=== PATIENT | male | born 1985 | race Caucasian/White ===

== ENCOUNTER 2016-12-17 20:56 | Emergency (ER) | payer OTHER ==
[2016-12-17 21:14] VITALS: BP 161/91
[2016-12-17] MEDS ORDERED: Acetaminophen/HYDROcodone 325-5 MG Tab PO ONE (23:08)
[2016-12-17] MEDS ORDERED: Penicillin G Benzathine 1,200,000 Units/2 ML Syringe IM ONE (23:08)
--- NOTE | 2016-12-17 23:12 | EDM.PDOC ---
ED HPI GENERAL MEDICAL PROBLEM - General Chief Complaint: ENT Problem Stated Complaint: STREP Time Seen by Provider: 12/17/16 21:48 Source of Information: Reports: Patient History Limitations: Reports: No Limitations - History of Present Illness INITIAL COMMENTS - FREE TEXT/NARRATIVE: Patient is a 31-year-old male presents ED complaining of sore throat that started this past Thursday and has progressively worsened. Has felt feverish with no documented fever present. States the right side of his neck is tender to touch. Mildly nauseated with intermittent headaches. He does have sinus congestion and postnasal drip. No cough present. Denies recent sick exposures. Denies any abdominal pain. He does have intermittent seasonal allergies but takes no medications. Throat Pain Score (Numeric/FACES): 9 - Related Data Allergies Allergy/AdvReac Type Severity Reaction Status Date / Time codeine Allergy Itching Verified 12/17/16 21:08 Home Meds: Home Meds traMADol [Ultram] 50 mg PO BID 09/22/14 [History] Past Medical History Musculoskeletal History: Reports: Back Pain, Chronic Neurological History: Reports: Concussion Other Dermatologic History: cellulitis - Past Surgical History Musculoskeletal Surgical History: Reports: Arthroscopic Knee, Other (See Below) Social & Family History - Tobacco Use Smoking Status *Q: Never Smoker Second Hand Smoke Exposure: No - Caffeine Use Caffeine Use: Reports: None - Alcohol Use Days Per Week of Alcohol Use: 0 - Recreational Drug Use Recreational Drug Use: No ED ROS ENT - Review of Systems Review Of Systems: ROS reveals no pertinent complaints other than HPI. ED EXAM, ENT - Physical Exam Exam: See Below Exam Limited By: No Limitations General Appearance: Alert, WD/WN, No Apparent Distress Eye Exam: Bilateral Eye: PERRL Ears: Normal External Exam, Normal Canal, Hearing Grossly Normal, Normal TMs Nose: Normal Inspection, Normal Mucousa, No Blood Mouth/Throat: Normal Inspection, Tonsillar Erythema, Tonsillar Swelling. No: Tongue Swelling, Tonsillar Exudates, Trismus, Uvular Deviation Head: Atraumatic, Normocephalic Neck: Normal Inspection, Supple, Non-Tender, Full Range of Motion. No: Lymphadenopathy (L), Lymphadenopathy (R) Respiratory/Chest: No Respiratory Distress, Lungs Clear, Normal Breath Sounds, No Accessory Muscle Use, Chest Non-Tender Cardiovascular: Normal Peripheral Pulses, Regular Rate, Rhythm GI/Abdominal: Normal Bowel Sounds, Soft, Non-Tender, No Organomegaly, No Distention Back: Normal Inspection Neurological: Alert, Oriented, CN II-XII Intact, Normal Cognition, No Motor/ Sensory Deficits Psychiatric: Normal Affect, Normal Mood Skin: Warm, Dry, Intact, Normal Color Course - Vital Signs Last Recorded V/S: Last Vital Signs Temp 98.2 F 12/17/16 21:09 Pulse 82 12/17/16 21:09 Resp 17 12/17/16 21:09 BP 161/91 H 12/17/16 21:09 Pulse Ox 98 12/17/16 21:09 - Orders/Labs/Meds Meds: Medications Discontinued Medications Generic Name Dose Route Start Last Admin Trade Name Yisel PRN Reason Stop Dose Admin Hydrocodone Bitart/Acetaminophen 1 tab 12/17/16 23:08 12/17/16 23:18 [place] 325-5 Mg PO 12/17/16 23:09 1 tab ONETIME ONE Administration Penicillin G Benzathine 1.2 millunits 12/17/16 23:08 12/17/16 23:18 Bicillin L-A IM 12/17/16 23:09 1.2 millunits ONETIME ONE Administration - Re-Assessments/Exams Free Text/Narrative Re-Assessment/Exam: Strep screen was ordered and came back positive. Patient has elected to receive an IM injection of Bicillin. For the pain also ordered [place] one tab by mouth. We'll discharge patient home with instructions as documented. Departure - Departure Time of Disposition: 23:11 Disposition: Home, Self-Care 01 Condition: Good Clinical Impression: Strep throat - Discharge Information Instructions: Strep Throat Referrals: PCP,None [Primary Care Provider] - Forms: ED Department Discharge, Return to Work/School Form Additional Instructions: No driving this evening since receiving a sedative to medication. Antibiotic was administered IM thus no oral therapies are required. Take Tylenol and ibuprofen in alternating fashion for pain and fever. Push the fluids. Ensure adequate rest. Follow-up with your primary care provider symptoms are not improved in the next 3 days. Return to ED for any new or worsening symptoms.
== END 2016-12-17 23:55 | disposition home or self-care (01) ==
LOC: JD.ED 20:56
DX: J02.0 Streptococcal pharyngitis (principal); Z98.890 Other specified postprocedural states
CPT/HCPCS: 87430; 96372; 99283; A9270; J0561

== ENCOUNTER 2019-06-23 19:21 | Emergency (ER) | payer OTHER ==
[2019-06-23 19:37] VITALS: BP 151/86; PULSE 85
[2019-06-23] MEDS ORDERED: Albuterol/Ipratropium 3.0-0.5 MG/3 ML Neb Soln NEB ONE (20:45)
--- NOTE | 2019-06-23 20:51 | EDM.PDOC ---
ED HPI GENERAL MEDICAL PROBLEM - General Chief Complaint: Respiratory Problem Stated Complaint: COUGH AND VOMITING FROM COUGH Time Seen by Provider: 06/23/19 20:17 Source of Information: Reports: Patient, RN Notes Reviewed History Limitations: Reports: No Limitations - History of Present Illness INITIAL COMMENTS - FREE TEXT/NARRATIVE: Patient is a 34-year-old male who presents to the ED for evaluation of a cough has been present for around 2 weeks. He further complains of some mild chest congestion as well. Patient notes he tried multiple [id number] remedies such as neck, DayQuil, NyQuil, and other cough medications but does not seem to help much at all. He notes that he has been waking up in the middle of night with mild shortness of breath, and feels like his throat is raw due to the coughing. He notes he gets a little bit of thick mucus up, but not a lot at a time. He notes that he has been coughing so much, that he has been vomiting, but does not notice any blood in the vomit. He is not having any chest pain, more of a mild chest discomfort due to the coughing. He has not had any fevers at home, however he states that symptoms awake up with the night sweats. He did not get a flu shot this year. He denies any other health issues, but notes he has chronic back pain that he is being treated for at the [facility]. - Related Data Allergies Allergy/AdvReac Type Severity Reaction Status Date / Time codeine Allergy Itching Verified 06/23/19 19:37 Home Meds: Home Meds traMADol [Ultram] 50 mg PO Q6H PRN #28 tab 01/13/19 [Rx] Sildenafil [Viagra] 50 mg PO BEDTIME PRN 06/23/19 [History] Past Medical History Musculoskeletal History: Reports: Back Pain, Chronic Neurological History: Reports: Concussion Endocrine/Metabolic History: Reports: Obesity/BMI 30+ Dermatologic History: Reports: Cellulitis - Past Surgical History Musculoskeletal Surgical History: Reports: Arthroscopic Knee Social & Family History - Tobacco Use Smoking Status *Q: Never Smoker - Caffeine Use Caffeine Use: Reports: None - Recreational Drug Use Recreational Drug Use: No ED ROS GENERAL - Review of Systems Review Of Systems: See Below Constitutional: Reports: Chills, Malaise (generalized), Night Sweats. Denies: Fever HEENT: Reports: Throat Pain. Denies: Throat Swelling Respiratory: Reports: Shortness of Breath (mild with coughing, and with exertion ), Cough. Denies: Wheezing Cardiovascular: Reports: Chest Pain (mild chest discomfort) GI/Abdominal: Reports: Vomiting (sometimes after coughing fits). Denies: Abdominal Pain, Nausea Neurological: Denies: Headache ED EXAM, GENERAL - Physical Exam Exam: See Below Exam Limited By: No Limitations General Appearance: Alert, WD/WN, No Apparent Distress Eye Exam: Bilateral Eye: EOMI, Normal Inspection, PERRL Ears: Normal External Exam Nose: Normal Inspection, Normal Mucosa, No Blood Throat/Mouth: Normal Inspection, Normal Lips, Normal Teeth, Normal Gums, Normal Oropharynx, Normal Voice, No Airway Compromise Head: Atraumatic, Normocephalic Neck: Normal Inspection Respiratory/Chest: No Respiratory Distress, Lungs Clear, No Accessory Muscle Use , Chest Non-Tender, Decreased Breath Sounds (diffuse bilaterally) Cardiovascular: Normal Peripheral Pulses, Regular Rate, Rhythm, No Murmur GI/Abdominal: Normal Bowel Sounds, Soft, Non-Tender, No Distention, No Mass Extremities: Normal Inspection, Normal Capillary Refill Neurological: Alert, Oriented, Normal Cognition, No Motor/Sensory Deficits Psychiatric: Normal Affect, Normal Mood Skin Exam: Warm, Dry, Intact, Normal Color, No Rash Course - Vital Signs Last Recorded V/S: Last Vital Signs Temp 98.3 F 06/23/19 19:34 Pulse 85 06/23/19 19:34 Resp 16 06/23/19 19:34 BP 151/86 H 06/23/19 19:34 Pulse Ox 94 L 06/23/19 20:45 - Orders/Labs/Meds Orders: Active Orders 24 hr Category Date Time Status RT Aerosol Therapy [RC] ASDIRECTED Care 06/23/19 20:45 Ordered Chest 2V [CR] Stat Exams 06/23/19 20:45 Ordered Codeine/Promethazine [Phenergan with Codeine] Med 06/24/19 22:03 Once 5 ml PO ONETIME ONE diphenhydrAMINE [Benadryl] Med 06/23/19 22:04 Ordered 25 mg IM ONETIME PRN Medication Orders Diphenhydramine HCl (Benadryl) 25 mg IM ONETIME PRN PRN Reason: Itching Promethazine HCl/Codeine (Phenergan With Codeine) 5 ml PO ONETIME ONE Stop: 06/24/19 22:04 Last Admin: 06/23/19 22:13 Dose: 5 ml Labs: Laboratory Tests 06/23/19 06/23/19 Range/Units 21:00 21:00 WBC 7.45 (4.23-9.07) K/mm3 RBC 5.38 (4.63-6.08) M/mm3 Hgb 16.2 (13.7-17.5) gm/dl Hct 43.5 (40.1-51.0) % MCV 80.9 (79.0-92.2) fl MCH 30.1 (25.7-32.2) pg MCHC 37.2 H (32.2-35.5) g/dl RDW Std Deviation 37.2 (35.1-43.9) fL Plt Count 233 (163-337) K/mm3 MPV 9.3 L (9.4-12.3) fl Neut % (Auto) 70.3 H (34.0-67.9) % Lymph % (Auto) 20.0 L (21.8-53.1) % [place] % (Auto) 7.9 (5.3-12.2) % Eos % (Auto) 1.6 (0.8-7.0) Baso % (Auto) 0.1 (0.1-1.2) % Neut # (Auto) 5.23 (1.78-5.38) K/mm3 Lymph # (Auto) 1.49 (1.32-3.57) K/mm3 [place] # (Auto) 0.59 (0.30-0.82) K/mm3 Eos # (Auto) 0.12 (0.04-0.54) K/mm3 Baso # (Auto) 0.01 (0.01-0.08) K/mm3 Manual Slide Review Normal smear Sodium 141 (136-145) mEq/L Potassium 3.9 (3.5-5.1) mEq/L Chloride 106 (98-107) mEq/L Carbon Dioxide 24 (21-32) mEq/L Anion Gap 14.9 (5-15) BUN 16 (7-18) mg/dL Creatinine 1.0 (0.7-1.3) mg/dL Est Cr Clr Drug Dosing 119.88 mL/min Estimated GFR (MDRD) > 60 (>60) mL/min BUN/Creatinine Ratio 16.0 (14-18) Glucose 94 (74-106) mg/dL Calcium 8.9 (8.5-10.1) mg/dL Total Bilirubin 0.6 (0.2-1.0) mg/dL AST 21 (15-37) U/L ALT 45 (16-63) U/L Alkaline Phosphatase 45 L (46-116) U/L Total Protein 6.8 (6.4-8.2) g/dl Albumin 4.3 (3.4-5.0) g/dl Globulin 2.5 gm/dL Albumin/Globulin Ratio 1.7 (1-2) Meds: Medications Generic Name Dose Route Start Last Admin Trade Name Freq PRN Reason Stop Dose Admin Diphenhydramine HCl 25 mg 06/23/19 22:04 Benadryl IM ONETIME PRN Itching Promethazine HCl/Codeine 5 ml 06/24/19 22:03 06/23/19 22:13 Phenergan With Codeine PO 06/24/19 22:04 5 ml ONETIME ONE Administration Discontinued Medications Generic Name Dose Route Start Last Admin Trade Name Freq PRN Reason Stop Dose Admin Albuterol/Ipratropium 3 ml 06/23/19 20:45 06/23/19 21:02 Duoneb 3.0-0.5 Mg/3 Ml NEB 06/23/19 20:46 3 ml ONETIME ONE Administration Promethazine HCl/Codeine Confirm 06/23/19 22:12 06/23/19 22:15 Phenergan With Codeine Administered 06/23/19 22:13 Not Given Dose 5 ml .ROUTE .STK-MED ONE - Re-Assessments/Exams Free Text/Narrative Re-Assessment/Exam: 06/23/19 20:51 Patient presents to the ED for evaluation of a cough and chest congestion been present for around 2 weeks now. I will order influenza swab, chest x-ray, CBC, CMP and a DuoNeb for initial management. Suspect patient has more of a bronchitis type illness in nature. 06/23/19 21:51 Influenza negative, chest x-ray shows no sign of pneumonia, suspect the patient has bronchitis. We'll treat as such. Departure - Departure Time of Disposition: 21:51 Disposition: Home, Self-Care 01 Condition: Fair Clinical Impression: Bronchitis - Discharge Information *PRESCRIPTION DRUG MONITORING PROGRAM REVIEWED*: No *COPY OF PRESCRIPTION DRUG MONITORING REPORT IN PATIENT ERROL: No Instructions: Acute Bronchitis, Adult, [id number] Referrals: Alexandria Fischer MD [Primary Care Provider] - Forms: ED Department Discharge Additional Instructions: You have been evaluated in the ED today for your cold like symptoms, cough, sore throat. This is likely a viral illness in etiology. Your chest x-ray did not show any sign of a pneumonia. It appears you may be suffering from bronchitis. Please increase your fluid intake. Get plenty of rest as well. You should feel better in a few days. You were given a prescription for a cough medicine that contains codeine, if you should develop itching, or hive-like lesions, please take Benadryl, 25-50 mg right away. You may also want to consider seeking care for further evaluation of possible allergic reaction. As you stated you had a possible allergic reaction to the codeine when you are around 14 years old the last time you took the sort of medication. You were successfully given one dose in the ER , without any such reaction.. If your symptoms are not better in one week's time recommend that you follow up in a clinic or your primary care provider. Our [facility] clinic number is , the [place] clinic is [phone]. Any family practice provider would be able to provide you with the services. Please return to the ED if your symptoms change or worsen. Sepsis Event Note - Evaluation Sepsis Screening Result: No Definite Risk - Focused Exam Vital Signs: Vital Signs Temp Pulse Resp BP Pulse Ox Pulse Ox 06/23/19 20:45 94 L 06/23/19 19:34 98.3 F 85 16 151/86 H 92 L Date Exam was Performed: 06/23/19 Time Exam was Performed: 22:55 - My Orders Last 24 Hours: My Active Orders 06/23/19 20:45 RT Aerosol Therapy [RC] ASDIRECTED Chest 2V [CR] Stat 06/23/19 22:04 diphenhydrAMINE [Benadryl] 25 mg IM ONETIME PRN 06/24/19 22:03 Codeine/Promethazine [Phenergan with Codeine] 5 ml PO ONETIME ONE - Assessment/Plan Last 24 Hours: My Active Orders 06/23/19 20:45 RT Aerosol Therapy [RC] ASDIRECTED Chest 2V [CR] Stat 06/23/19 22:04 diphenhydrAMINE [Benadryl] 25 mg IM ONETIME PRN 06/24/19 22:03 Codeine/Promethazine [Phenergan with Codeine] 5 ml PO ONETIME ONE
[2019-06-23] MEDS ORDERED: diphenhydrAMINE 50 MG/ML SDV IM PRN (22:04)
[2019-06-23] MEDS ORDERED: Codeine/Promethazine 10-6.25 MG/5 ML Syrup 5 ML UD Cup ONE (22:12)
--- NOTE | 2019-06-24 14:01 | CR ---
Chest: Two views of the chest were obtained. Comparison: Prior chest x-ray of 06/22/15. Heart size and mediastinum are normal. Distal right clavicle is sclerotic which appears as an interval change from previous exam. Bony structures otherwise are unremarkable. Lungs are clear. No acute parenchymal change. Impression: 1. Sclerotic distal right clavicle. This is an interval change from previous exam and uncertain as to etiology. Osteoblastic metastasis is possible but seems unlikely given that no other bone findings are seen as well as given the patient's age. Interval fracture with callus is possible. Please correlate if patient's clinical history can differentiate. 2. Nothing acute is otherwise seen on two-view chest x-ray. Diagnostic code #3 This report was dictated in [place] Standard Time
[2019-06-24] MEDS ORDERED: Codeine/Promethazine 10-6.25 MG/5 ML Syrup 5 ML UD Cup PO ONE (22:03)
== END 2019-06-23 23:01 | disposition home or self-care (01) ==
LOC: JD.ED 19:21
DX: J40 Bronchitis, not specified as acute or chronic (principal); E66.9 Obesity, unspecified; Z68.32 Body mass index [BMI] 32.0-32.9, adult; Z88.5 Allergy status to narcotic agent
CPT/HCPCS: 36415; 71046; 80053; 85025; 87804; 94640; 99285; A9270; J7620-GY

== ENCOUNTER 2020-02-26 20:23 | Emergency (ER) | payer OTHER ==
[2020-02-26 20:31] VITALS: BP 164/101; PULSE 97
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
== END 2020-02-26 20:49 | disposition home or self-care (01) ==
LOC: JD.ED 20:23
DX: S01.511A Laceration without foreign body of lip, initial encounter (principal); E66.9 Obesity, unspecified; Z68.30 Body mass index [BMI] 30.0-30.9, adult; Z88.5 Allergy status to narcotic agent; W50.0XXA Accidental hit or strike by another person, initial encounter
CPT/HCPCS: 99282

== ENCOUNTER 2021-11-03 11:46 | Emergency (ER) | payer OTHER ==
[2021-11-03 12:23] VITALS: BP 156/109; PULSE 78
[2021-11-03] MEDS ORDERED: Lidocaine 1% 10 ML MDV INJECT ONE (12:40)
[2021-11-03] MEDS ORDERED: Bupivacaine 0.5% 10 ML SDV INJECT ONE (12:40)
[2021-11-03] MEDS ORDERED: cefTRIAXone 1 GM, Lidocaine 1% 2.1 ML IM ONE ×2 (14:10)
== END 2021-11-03 14:52 | disposition home or self-care (01) ==
LOC: JD.ED 11:46
DX: S62.656B Nondisplaced fracture of middle phalanx of right little finger, initial encounter for open fracture (principal); E66.9 Obesity, unspecified; Z68.33 Body mass index [BMI] 33.0-33.9, adult; Z88.5 Allergy status to narcotic agent; W23.1XXA Caught, crushed, jammed, or pinched between stationary objects, initial encounter
CPT/HCPCS: 12002; 73140; 96372; 99283; J0696; J3490

== ENCOUNTER 2023-08-20 09:48 | Emergency (ER) | payer OTHER ==
[2023-08-20] MEDS: Sodium Chloride 0.9% 10 ML Syringe FLUSH PRN (10:45)
[2023-08-20] MEDS: Aspirin 81 MG Tab.Chew PO ONE (10:45)
[2023-08-20 10:55] LABS: BASOPHILS PERCENT AUTO 0.6 % (0.0-1.0); EOSINOPHILS ABSOLUTE AUTO 0.1 K/mm3 (0.0-0.4); EOSINOPHILS PERCENT AUTO 2.4 % (0.0-6.0); HEMATOCRIT 46.4 % (42.0-52.0); HEMOGLOBIN 16.8 gm/dl (14.0-18.0); IMMATURE GRAN ABSOLUTE AUTO 0.01 K/mm3 (0.00-0.05); IMMATURE GRAN PERCENT AUTO 0.2 % (0.0-0.4); LYMPHOCYTES ABSOLUTE AUTO 0.9 K/mm3 (1.0-4.8); LYMPHOCYTES PERCENT AUTO 16.7 % (24.0-44.0); MEAN CORPUSCULAR HEMOGLOBIN 29.9 pg (28.0-32.0); MEAN CORPUSCULAR HGB CONC 36.2 g/dl (32.0-36.0); MEAN CORPUSCULAR VOLUME 82.6 fl (83.0-99.0); MEAN PLATELET VOLUME 9.6 fl (9.4-12.4); MONOCYTES ABSOLUTE AUTO 0.4 K/mm3 (0.0-0.8); MONOCYTES PERCENT AUTO 7.5 % (0.0-8.0); NEUTROPHILS ABSOLUTE AUTO 3.7 K/mm3 (1.8-7.7); NEUTROPHILS PERCENT AUTO 72.6 % (41.0-71.0); PLATELET COUNT,PLT 186 K/mm3 (150-400); RED BLOOD CELL COUNT 5.62 M/mm3 (4.52-5.90); WHITE BLOOD CELL COUNT,WBC 5.09 K/mm3 (3.9-11.3)
[2023-08-20 11:21] LABS: A/G RATIO 1.3 (1-2); ALBUMIN 3.9 g/dl (3.4-5.0); ANION GAP 12.9 (5-15); CALCIUM 8.5 mg/dL (8.5-10.1); CREATININE 1.1 mg/dL (0.7-1.3); EST CRCL DRUG DOSING (CG) 101.89 mL/min; MAGNESIUM 1.9 mg/dL (1.8-2.4); POTASSIUM,K 3.9 mEq/L (3.5-5.1); PROTEIN TOTAL,TP 6.8 g/dl (6.4-8.2)
[2023-08-20 11:25] LABS: INR 0.99; PROTHROMBIN TIME 10.6 SECONDS (9.7-12.0)
[2023-08-20 11:32] LABS: CORONAVIRUS COVID-19 NAA NEGATIVE (NEGATIVE); INFLUENZA A NAA NEGATIVE (NEGATIVE); RESPIRATORY SYNCYTIAL VIR NAA NEGATIVE (NEGATIVE)
[2023-08-20 11:43] LABS: D-DIMER QUANTITATIVE < 0.19 mg/L (0.19-0.50)
[2023-08-20 12:27] VITALS: BP 170/112; PULSE 68
== END 2023-08-20 12:20 | disposition home or self-care (01) ==
LOC: JD.ED 09:48
DX: I10 Essential (primary) hypertension (principal); R07.9 Chest pain, unspecified; Z88.5 Allergy status to narcotic agent
CPT/HCPCS: 0241U; 36415; 71046; 71046-26; 80053; 83735; 84484; 85025; 85379; 85610; 93005; 99285; A9270-GY; J3490